=== PATIENT | female | born 1975 | race African-American/Black ===

== ENCOUNTER 2017-02-16 15:53 | Emergency (ER) | payer MEDICAID, OTHER ==
[2017-02-16] MEDS ORDERED: Morphine 4 MG/ML Carpuject ONE (16:25)
[2017-02-16] MEDS ORDERED: Promethazine HCl 25 MG/ML VIAL ONE (16:25)
[2017-02-16] MEDS ORDERED: Amlodipine 5 MG TAB ONE (16:52)
[2017-02-16] MEDS ORDERED: Haloperidol Lactate 5 MG/ML VIAL ONE (19:03)
== END 2017-02-16 19:44 | disposition home or self-care (01) ==
LOC: BURERS 15:53
DX: K52.9 Noninfective gastroenteritis and colitis, unspecified (principal); I10 Essential (primary) hypertension; G43.909 Migraine, unspecified, not intractable, without status migrainosus; F41.9 Anxiety disorder, unspecified; F43.10 Post-traumatic stress disorder, unspecified; F17.210 Nicotine dependence, cigarettes, uncomplicated; Z79.899 Other long term (current) drug therapy
CPT/HCPCS: 96365; 96366; 96367; 96372; 96375; J1630; J2270; J2550